=== PATIENT | female | born 1965 | race Caucasian/White ===

== ENCOUNTER 2016-11-13 20:10 | Emergency (ER) | payer OTHER ==
[~2016-11-13] VITALS: Ht 160 cm; Wt 91.2 kg
[~2016-11-13 20:10] MED LIST: ALBU17AE26 IH; AMLO10TA88 PO; LISI10TA5 PO
[2016-11-13 20:15] VITALS: BP_SYST 150
--- NOTE | 2016-11-13 20:20 | NUR ---
Placed in room 07 . Placed on teletypesetter monitor, blood pressure machine and pulse oximeter. To gown for exam. Side rails up. Report given to ROSA Alford.
--- NOTE | 2016-11-13 20:25 | NUR ---
Patient AAO x4, sitting in bed, c/o Right lower quadrant abd pain radiating to right flank x 1 day, states it's a " burning, constant pain" 7/10 with nausea. - Vomiting. Denies chest pain, denies shortness of breath, no acute distress noted. Patient afebrile. Will continue to monitor.
--- NOTE | 2016-11-13 20:28 | NUR ---
ER at bedside examining patient.
[2016-11-13 20:41] LABS: BILIRUBIN,URINE NEGATIVE (NEGATIVE); CLARITY/URINE CLEAR (CLEAR); COLOR,URINE YELLOW (YELLOW); GLUCOSE,URINE NEGATIVE (NEGATIVE); KETONES,URINE NEGATIVE (NEGATIVE); LEUKOCYTE ESTERASE ,URINE TRACE (NEGATIVE); NITRITE, URINE NEGATIVE (NEGATIVE); PH,URINE 7.5 (5.0-8.0); PROTEIN URINE NEGATIVE (NEGATIVE); UROBILINOGEN,URINE 0.2 (0.2-1.0)
[2016-11-13 20:48] LABS: BLOOD, URINE TRACE (NEGATIVE)
[2016-11-13 20:49] LABS: BACTERIA,URINE FEW /HPF (None Seen); MUCUS,URINE None Seen /LPF (None Seen); RBC,URINE 0-3 /HPF (0-3)
[2016-11-13 20:56] LABS: BASOPHILS # (AUTO) 0.1 K/uL (0.0-0.2); BASOPHILS % (AUTO) 0.9 % (0.0-2.0); EOSINOPHILS # (AUTO) 0.1 K/uL (0.0-0.4); EOSINOPHILS % (AUTO) 1.8 % (0.0-4.0); HEMATOCRIT 41.4 % (36-48); HEMOGLOBIN 13.9 g/dL (12.0-16.0); LYMPHOCYTES # (AUTO) 1.1 K/uL (1.0-5.5); LYMPHOCYTES % (AUTO) 14.8 % (20.5-51.5); MEAN CORPUSCULAR HEMOGLOBIN 28 pg (27-31); MEAN CORPUSCULAR HGB CONC 34 % (32-36); MEAN CORPUSCULAR VOLUME 85 fL (79.0-98.0); MONOCYTES # (AUTO) 0.4 K/uL (0.0-1.0); MONOCYTES % (AUTO) 4.7 % (1.7-9.3); NEUTROPHILS % (AUTO) 77.8 % (40.0-70.0); PLATELET COUNT (AUTO) 242 K/uL (130-430); RED BLOOD CELL COUNT(AUTO) 4.88 MIL/uL (4.2-6.2); RED CELL DISTRIBUTION WIDTH 14.2 % (9.0-15.0); WHITE BLOOD COUNT (AUTO) 7.7 K/uL (4.8-10.8)
[2016-11-13] MEDS ORDERED: KETOROLAC TROMETHAMINE 30 MG VIAL IVP ONE (21:00)
[2016-11-13 21:02] LABS: CALCIUM 9.1 mg/dL (8.4-11.0); CREATININE 0.79 mg/dL (0.55-1.30); POTASSIUM 3.9 mmol/L (3.5-5.1)
[2016-11-13 21:06] LABS: ALBUMIN 3.9 g/dL (3.4-4.8); TOTAL BILIRUBIN 0.3 mg/dL (0.0-1.0); TOTAL PROTEIN, SERUM 8.6 g/dL (6.4-8.3)
--- NOTE | 2016-11-13 21:28 | NUR ---
Patient reports pain 0/10 30 minutes after administration of Torodol IVP. No adverse reactions noted. Will continue to monitor.
[2016-11-13] MEDS ORDERED: IOHEXOL 100 ML IV ONE (21:58)
--- NOTE | 2016-11-13 22:30 | NUR ---
Patient resting quietly. No acute distress noted. Vital signs within normal range.
[2016-11-13 23:03] VITALS: BP_SYST 130
--- NOTE | 2016-11-13 23:03 | NUR ---
Patient given written and verbal discharge instructions and verbalizes understanding. ER MD discussed with patient the results and treatment provided. Patient in stable condition. ID arm band removed. IV catheter removed intact and dressing applied, no active bleeding. Rx of NORCO given. Patient educated on pain management and to follow up with PMD. Pain Scale 0/10. Opportunity for questions provided and answered.
== END 2016-11-13 23:03 | disposition home or self-care (01) ==
LOC: SED 20:10
DX: R10.9 Unspecified abdominal pain (principal); I10 Essential (primary) hypertension; J45.909 Unspecified asthma, uncomplicated; E11.9 Type 2 diabetes mellitus without complications; E03.9 Hypothyroidism, unspecified; D64.9 Anemia, unspecified; Z90.710 Acquired absence of both cervix and uterus
CPT/HCPCS: 36415; 74177; 80053; 81000; 81025; 83690; 85025; 96374; 99285; J1885; Q9967

== ENCOUNTER 2020-01-08 17:19 | Emergency (ER) | payer OTHER ==
[~2020-01-08] VITALS: Ht 165.1 cm; Wt 108.9 kg
[2020-01-08 17:19] VITALS: BP_SYST 151
--- NOTE | 2020-01-08 17:19 | NUR ---
Patient to ER bed 7 to gown for evaluation. Side rails up. Report given to ROSA Martínez.
--- NOTE | 2020-01-08 17:29 | NUR ---
PATIENT PRESENTED TO ER C/O ABDOMINAL PAIN.PATIENT AAOX4, AMBULATORY TO ER, AFEBRILE, SKIN PINK, DIAPHORETIC, PAIN 9/10, NAUSEA, DENIES V/D. PT REPORTS ABDOMINAL PAIN, HEAD ACHE, DIZZINESS, NAUSEA, SUBJECTIVE FEVER SINCE THIS MORNING. PT HAS A HISTORY OF HTN, DM, THYROID DZ, HYPERCHOLESTEROL, BOWEL SX 10/15/19 PT PLACED ON SECURITY OFFICERS AND GUARDS & PULSE-OX MONITOR. WILL CONTINUE MONITOR.
--- NOTE | 2020-01-08 17:37 | NUR ---
GILA MAGUIRE at bedside examining patient.
[2020-01-08] MEDS ORDERED: NACL 0.9% 1,000 ML IV ONE (17:45)
[2020-01-08] MEDS ORDERED: ONDANSETRON HCL 4 MG/2 ML VIAL IVP ONE (17:45)
[2020-01-08] MEDS ORDERED: MORPHINE 4 MG/ML INJ. SYRINGE IVP ONE ×2 (17:45→19:45)
--- NOTE | 2020-01-08 17:50 | NUR ---
# 22 gauge angiocath placed to Left hand. Use of asceptic technique. Opsite placed over site. Blood return noted. Blood for lab drawn from site. Flushed with 10 cc of normal saline. No evidence of infiltration noted. Patient tolerated well.
--- NOTE | 2020-01-08 17:55 | NUR ---
Medicated per MD orders. IVF infusing with no s/s of infiltration at this time. Will cont to monitor
--- NOTE | 2020-01-08 18:10 | NUR ---
PT TO RADIOLOGY WITH [facility] VIA WHEELCHAIR.
[2020-01-08 18:12] LABS: BASOPHILS # (AUTO) 0.1 K/uL (0.0-0.2); BASOPHILS % (AUTO) 0.6 % (0.0-2.0); EOSINOPHILS # (AUTO) 0.1 K/uL (0.0-0.4); EOSINOPHILS % (AUTO) 0.5 % (0.0-4.0); HEMATOCRIT 39.3 % (36-48); HEMOGLOBIN 13.1 g/dL (12.0-16.0); LYMPHOCYTES # (AUTO) 1.1 K/uL (1.0-5.5); LYMPHOCYTES % (AUTO) 10.7 % (20.5-51.5); MEAN CORPUSCULAR HEMOGLOBIN 27 pg (27-31); MEAN CORPUSCULAR HGB CONC 33 % (32-36); MEAN CORPUSCULAR VOLUME 82 fL (79.0-98.0); MONOCYTES # (AUTO) 0.6 K/uL (0.0-1.0); MONOCYTES % (AUTO) 5.6 % (1.7-9.3); NEUTROPHILS # (AUTO) 8.7 K/uL (1.8-7.7); NEUTROPHILS % (AUTO) 82.6 % (40.0-70.0); PLATELET COUNT (AUTO) 233 K/uL (130-430); RED BLOOD CELL COUNT(AUTO) 4.78 MIL/uL (4.2-6.2); RED CELL DISTRIBUTION WIDTH 16.3 % (9.0-15.0); WHITE BLOOD COUNT (AUTO) 10.5 K/uL (4.8-10.8)
--- NOTE | 2020-01-08 18:20 | NUR ---
PT TO ER BED 7 FROM RADIOLOGY.
[2020-01-08 18:21] LABS: INR 1.2 (0.8-1.2); PROTHROMBIN TIME 11.7 SECS (9.5-12.5)
--- NOTE | 2020-01-08 19:07 | NUR ---
REPORT TO KONRAD LEE
--- NOTE | 2020-01-08 19:15 | NUR ---
received report from ROSA mullen for continuation of care.
--- NOTE | 2020-01-08 19:16 | NUR ---
pt states pain is a 6 out of 10. md aware.
[2020-01-08 19:21] LABS: CALCIUM 8.8 mg/dL (8.4-11.0); CREATININE 0.77 mg/dL (0.55-1.30); POTASSIUM 4.2 mmol/L (3.5-5.1)
[2020-01-08 19:22] LABS: ALBUMIN 3.6 g/dL (3.4-4.8); TOTAL BILIRUBIN 0.4 mg/dL (0.0-1.0)
[2020-01-08 19:25] LABS: BILIRUBIN,URINE NEGATIVE (NEGATIVE); BLOOD, URINE NEGATIVE (NEGATIVE); CLARITY/URINE SL CLOUDY (CLEAR); COLOR,URINE YELLOW (YELLOW); GLUCOSE,URINE NEGATIVE (NEGATIVE); KETONES,URINE NEGATIVE (NEGATIVE); LEUKOCYTE ESTERASE ,URINE NEGATIVE (NEGATIVE); NITRITE, URINE NEGATIVE (NEGATIVE); PROTEIN URINE 2+ (NEGATIVE); UROBILINOGEN,URINE 0.2 (0.2-1.0)
--- NOTE | 2020-01-08 19:40 | NUR ---
Dr. Galvez at bedside discussing plan of care with patient.
[2020-01-08] MEDS ORDERED: CIPROFLOXACIN HCL 500 MG TABLET PO ONE (19:45)
[2020-01-08] MEDS ORDERED: metroNIDAZOLE 500 MG TABLET PO ONE (19:45)
--- NOTE | 2020-01-08 19:45 | NUR ---
lab at bedside.
--- NOTE | 2020-01-08 20:07 | NUR ---
pt medicated per md order. pt tolerated well.
[2020-01-08] MEDS ORDERED: metroNIDAZOLE 500 MG TABLET ONE (20:18)
[2020-01-08 20:26] VITALS: BP_SYST 159
--- NOTE | 2020-01-08 20:26 | NUR ---
Patient given written and verbal discharge instructions and verbalizes understanding. ER MD discussed with patient the results and treatment provided. Patient in stable condition. ID arm band removed. IV catheter removed intact and dressing applied, no active bleeding. Rx of FLAGYL, CIPRO, IBUPROFEN, TRAMADOL given. Patient educated on pain management and to follow up with PMD. Pain Scale 4/10. Opportunity for questions provided and answered. Medication side effect fact sheet provided.
== END 2020-01-08 20:26 | disposition home or self-care (01) ==
LOC: SED 17:19
DX: R10.84 Generalized abdominal pain (principal); I10 Essential (primary) hypertension; E11.9 Type 2 diabetes mellitus without complications; E03.9 Hypothyroidism, unspecified; J45.909 Unspecified asthma, uncomplicated; Z90.49 Acquired absence of other specified parts of digestive tract; Z90.710 Acquired absence of both cervix and uterus
CPT/HCPCS: 36415; 74176; 80053; 81003; 83605; 83690; 84484; 85025; 85610; 85730; 87040; 87086; 93005; 96361; 96374; 96375; 96376; 99285; J2270; J2405; J7030

== ENCOUNTER 2020-01-16 18:28 | Emergency (ER) | payer OTHER ==
[~2020-01-16] VITALS: Ht 160 cm; Wt 105.7 kg
[2020-01-16 18:54] VITALS: BP_SYST 201
[2020-01-16] MEDS ORDERED: ENALAPRILAT DIHYDRATE 1.25 MG/ML VIAL IVP ONE (19:15)
[2020-01-16] MEDS ORDERED: ASPIRIN 325 MG TABLET PO ONE (19:15)
[2020-01-16] MEDS ORDERED: hydrALAZINE HCL 20 MG/ML VIAL IVP ONE ×2 (19:15→20:30)
[2020-01-16 19:25] LABS: BASOPHILS % (AUTO) 0.6 % (0.0-2.0); EOSINOPHILS # (AUTO) 0.2 K/uL (0.0-0.4); EOSINOPHILS % (AUTO) 3.5 % (0.0-4.0); HEMATOCRIT 39.3 % (36-48); HEMOGLOBIN 12.9 g/dL (12.0-16.0); LYMPHOCYTES # (AUTO) 1.7 K/uL (1.0-5.5); LYMPHOCYTES % (AUTO) 27.5 % (20.5-51.5); MEAN CORPUSCULAR HEMOGLOBIN 27 pg (27-31); MEAN CORPUSCULAR HGB CONC 33 % (32-36); MEAN CORPUSCULAR VOLUME 82 fL (79.0-98.0); MONOCYTES # (AUTO) 0.5 K/uL (0.0-1.0); MONOCYTES % (AUTO) 8.7 % (1.7-9.3); NEUTROPHILS # (AUTO) 3.8 K/uL (1.8-7.7); NEUTROPHILS % (AUTO) 59.7 % (40.0-70.0); PLATELET COUNT (AUTO) 275 K/uL (130-430); RED CELL DISTRIBUTION WIDTH 15.9 % (9.0-15.0); WHITE BLOOD COUNT (AUTO) 6.3 K/uL (4.8-10.8)
[2020-01-16 19:52] LABS: CALCIUM 9.6 mg/dL (8.4-11.0); CREATININE 1.07 mg/dL (0.55-1.30); POTASSIUM 4.3 mmol/L (3.5-5.1)
[2020-01-16 19:58] LABS: ALBUMIN 3.6 g/dL (3.4-4.8); TOTAL BILIRUBIN 0.2 mg/dL (0.0-1.0)
[2020-01-16 20:00] LABS: PROTHROMBIN TIME 10.4 SECS (9.5-12.5)
[2020-01-16] MEDS ORDERED: NITROGLYCERIN 1 INCH (GM) OINT. TP ONE (20:30)
[2020-01-16 21:55] VITALS: BP_SYST 123
[2020-01-16] MEDS ORDERED: ONDANSETRON 4 MG ODT TAB PO ONE (22:00)
== END 2020-01-16 21:55 | disposition home or self-care (01) ==
LOC: SED 18:28
DX: I10 Essential (primary) hypertension (principal); J45.909 Unspecified asthma, uncomplicated; E11.9 Type 2 diabetes mellitus without complications; E03.9 Hypothyroidism, unspecified; Z86.2 Personal history of diseases of the blood and blood-forming organs and certain disorders involving the immune mechanism; Z90.710 Acquired absence of both cervix and uterus
CPT/HCPCS: 36415; 71045; 80053; 83880; 84484; 85025; 85610; 85379; 85730; 96374; 96375; 96376; 99291; J0360; Q0162; 99284

== ENCOUNTER 2020-01-17 19:28 | Emergency (ER) | payer OTHER ==
[~2020-01-17] VITALS: Ht 160 cm; Wt 105.7 kg
[2020-01-17 19:45] VITALS: BP_SYST 163
[2020-01-17] MEDS ORDERED: cloNIDine HCL 0.1 MG TABLET PO ONE ×2 (21:00→22:45)
[2020-01-17 21:26] LABS: BASOPHILS # (AUTO) 0.1 K/uL (0.0-0.2); BASOPHILS % (AUTO) 1.1 % (0.0-2.0); EOSINOPHILS # (AUTO) 0.1 K/uL (0.0-0.4); EOSINOPHILS % (AUTO) 1.5 % (0.0-4.0); HEMATOCRIT 38.3 % (36-48); HEMOGLOBIN 12.5 g/dL (12.0-16.0); MEAN CORPUSCULAR HEMOGLOBIN 27 pg (27-31); MEAN CORPUSCULAR HGB CONC 33 % (32-36); MEAN CORPUSCULAR VOLUME 82 fL (79.0-98.0); MONOCYTES # (AUTO) 0.7 K/uL (0.0-1.0); MONOCYTES % (AUTO) 8.6 % (1.7-9.3); NEUTROPHILS # (AUTO) 4.7 K/uL (1.8-7.7); NEUTROPHILS % (AUTO) 62.8 % (40.0-70.0); PLATELET COUNT (AUTO) 264 K/uL (130-430); RED BLOOD CELL COUNT(AUTO) 4.67 MIL/uL (4.2-6.2); RED CELL DISTRIBUTION WIDTH 16.1 % (9.0-15.0); WHITE BLOOD COUNT (AUTO) 7.5 K/uL (4.8-10.8)
[2020-01-17 21:43] LABS: CALCIUM 9.3 mg/dL (8.4-11.0); CREATININE 0.9 mg/dL (0.55-1.30); POTASSIUM 3.9 mmol/L (3.5-5.1)
[2020-01-17 21:48] LABS: ALBUMIN 3.5 g/dL (3.4-4.8); TOTAL BILIRUBIN 0.1 mg/dL (0.0-1.0)
[2020-01-17] MEDS ORDERED: amLODIPine BESYLATE 5 MG TABLET PO ONE (22:45)
[2020-01-17 23:55] VITALS: BP_SYST 178
== END 2020-01-17 23:55 | disposition home or self-care (01) ==
LOC: SED 19:28
DX: R07.89 Other chest pain (principal); J45.909 Unspecified asthma, uncomplicated; I10 Essential (primary) hypertension; E11.9 Type 2 diabetes mellitus without complications; E03.9 Hypothyroidism, unspecified; Z86.2 Personal history of diseases of the blood and blood-forming organs and certain disorders involving the immune mechanism; Z90.710 Acquired absence of both cervix and uterus
CPT/HCPCS: 36415; 80053; 84484; 85025; 93005; 99284

== ENCOUNTER 2020-08-12 15:56 | Emergency (ER) | payer OTHER ==
[~2020-08-12] VITALS: Ht 160 cm; Wt 104.3 kg
[~2020-08-12 15:56] MED LIST changes: +LISI10TA29 PO; -LISI10TA5 PO
[2020-08-12 16:51] VITALS: BP_SYST 162
[2020-08-12] MEDS ORDERED: HYDROmorphone 1 INJ. 1 MG/ML CARTRIDGE IM ONE (20:00)
[2020-08-12] MEDS ORDERED: MORPHINE SULFATE 10 MG/ML VIAL IM ONE (20:15)
[2020-08-12] MEDS ORDERED: HYDR-3921 PO (20:29)
[2020-08-12] MEDS ORDERED: IBUP-1969 PO (20:29)
[2020-08-12 20:40] VITALS: BP_SYST 166
== END 2020-08-12 20:40 | disposition home or self-care (01) ==
LOC: SED 15:56
DX: M70.71 Other bursitis of hip, right hip (principal); I10 Essential (primary) hypertension; E11.9 Type 2 diabetes mellitus without complications; E03.9 Hypothyroidism, unspecified; J45.909 Unspecified asthma, uncomplicated; Z79.899 Other long term (current) drug therapy; Y93.89 Activity, other specified
CPT/HCPCS: 72100; 96372; 99283; J2270; J1170

== ENCOUNTER 2021-07-05 16:23 | Emergency (ER) | payer OTHER ==
[~2021-07-05] VITALS: Ht 160 cm; Wt 99.8 kg
[~2021-07-05 16:23] MED LIST changes: +HYDR-3921 PO; +IBUP-1969 PO
[2021-07-05 16:28] VITALS: BP_SYST 142
[2021-07-05] MEDS ORDERED: HYDROcodone/ACETAMIN 5-325 MG TAB (NORCO/ VICODIN) PO ONE (17:45)
[2021-07-05] MEDS ORDERED: CEPH-548 PO (18:21)
[2021-07-05] MEDS ORDERED: HYDR-3917 PO (18:21)
[2021-07-05 18:35] VITALS: BP_SYST 132
== END 2021-07-05 18:40 | disposition home or self-care (01) ==
LOC: SED 16:23
DX: S83.91XA Sprain of unspecified site of right knee, initial encounter (principal); S93.501A Unspecified sprain of right great toe, initial encounter; I10 Essential (primary) hypertension; E03.9 Hypothyroidism, unspecified; E11.9 Type 2 diabetes mellitus without complications; J45.909 Unspecified asthma, uncomplicated; Z79.899 Other long term (current) drug therapy; W01.0XXA Fall on same level from slipping, tripping and stumbling without subsequent striking against object, initial encounter; Y93.89 Activity, other specified; Y92.89 Other specified places as the place of occurrence of the external cause; Y99.8 Other external cause status
CPT/HCPCS: 73560-TC; 81002; 99284

== ENCOUNTER 2021-11-12 08:12 | Emergency (ER) | payer OTHER ==
[~2021-11-12] VITALS: Ht 160 cm; Wt 99.8 kg
[2021-11-12 08:12] VITALS: BP_SYST 163
[~2021-11-12 08:12] MED LIST changes: +CEPH-548 PO; +HYDR-3917 PO
--- NOTE | 2021-11-12 08:20 | NUR ---
BROUGHT BACK TO BED #8 VIA WHEELCHAIR, TRIAGED AND REPORT GIVEN TO MARSHA
--- NOTE | 2021-11-12 08:30 | NUR ---
GILA Shipley at bedside examining patient.
--- NOTE | 2021-11-12 08:32 | NUR ---
Assumed care of pt who came from home c/o rt foot pain that she states was caused by accidentally dropping a table on it yesterday evening. VSS, pt appears in no acute distress, is calm and cooperative. Will continue to provide care as ordered.
[2021-11-12] MEDS ORDERED: TRAM50TA2 PO (08:45)
[2021-11-12] MEDS ORDERED: IBUPROFEN 600 MG TABLET PO ONE (08:45)
[2021-11-12] MEDS ORDERED: IBUP-1969 PO (08:48)
[2021-11-12 09:25] VITALS: BP_SYST 163
--- NOTE | 2021-11-12 09:27 | NUR ---
Patient given written and verbal discharge instructions and verbalizes understanding. ER MD discussed with patient the results and treatment provided. Patient in stable condition. ID arm band removed. Rxs of ibuprofen and tramadol given. Patient educated on pain management and to follow up with PMD. Pain Scale 5/10. Opportunity for questions provided and answered. Medication side effect fact sheet provided.
== END 2021-11-12 09:27 | disposition home or self-care (01) ==
LOC: SED 08:12
DX: S90.31XA Contusion of right foot, initial encounter (principal); J45.909 Unspecified asthma, uncomplicated; E11.9 Type 2 diabetes mellitus without complications; I10 Essential (primary) hypertension; Z79.899 Other long term (current) drug therapy; W20.8XXA Other cause of strike by thrown, projected or falling object, initial encounter; Y93.89 Activity, other specified; Y92.89 Other specified places as the place of occurrence of the external cause; Y99.8 Other external cause status
CPT/HCPCS: 99283

== ENCOUNTER 2022-09-01 16:17 | Emergency (ER) | payer OTHER ==
[~2022-09-01] VITALS: Ht 160 cm; Wt 83.9 kg
[~2022-09-01 16:17] MED LIST changes: +TRAM50TA2 PO
[2022-09-01 16:30] VITALS: BP_SYST 174
[2022-09-01 17:05] LABS: BASOPHILS # (AUTO) 0.1 K/uL (0.0-0.2); BASOPHILS % (AUTO) 0.9 % (0.0-2.0); EOSINOPHILS # (AUTO) 0.1 K/uL (0.0-0.4); EOSINOPHILS % (AUTO) 1.8 % (0.0-4.0); HEMATOCRIT 40.5 % (36-48); HEMOGLOBIN 13.3 g/dL (12.0-16.0); LYMPHOCYTES % (AUTO) 15.9 % (20.5-51.5); MEAN CORPUSCULAR HEMOGLOBIN 27 pg (27-31); MEAN CORPUSCULAR HGB CONC 33 % (32-36); MEAN CORPUSCULAR VOLUME 82 fL (79.0-98.0); MONOCYTES # (AUTO) 0.4 K/uL (0.0-1.0); MONOCYTES % (AUTO) 6.8 % (1.7-9.3); NEUTROPHILS # (AUTO) 4.7 K/uL (1.8-7.7); NEUTROPHILS % (AUTO) 74.6 % (40.0-70.0); PLATELET COUNT (AUTO) 242 K/uL (130-430); RED BLOOD CELL COUNT(AUTO) 4.91 MIL/uL (4.2-6.2); RED CELL DISTRIBUTION WIDTH 15.4 % (9.0-15.0); WHITE BLOOD COUNT (AUTO) 6.3 K/uL (4.8-10.8)
[2022-09-01 17:13] LABS: CLARITY/URINE CLEAR (CLEAR); COLOR,URINE YELLOW (YELLOW)
[2022-09-01 17:14] LABS: BILIRUBIN,URINE NEGATIVE (NEGATIVE); BLOOD, URINE NEGATIVE (NEGATIVE); GLUCOSE,URINE 3+ (NEGATIVE); KETONES,URINE NEGATIVE (NEGATIVE); LEUKOCYTE ESTERASE ,URINE NEGATIVE (NEGATIVE); NITRITE, URINE NEGATIVE (NEGATIVE); PROTEIN URINE NEGATIVE (NEGATIVE); UROBILINOGEN,URINE 0.2 (0.2-1.0)
[2022-09-01 17:18] LABS: ALBUMIN 4.2 g/dL (3.4-4.8); CALCIUM 10.1 mg/dL (8.4-11.0); CREATININE 0.8 mg/dL (0.55-1.30); TOTAL BILIRUBIN 0.4 mg/dL (0.0-1.0)
[2022-09-01] MEDS ORDERED: LIDOCAINE PATCH 5% 1 EA TP ONE (19:15)
[2022-09-01] MEDS ORDERED: KETOROLAC TROMETHAMINE 30 MG VIAL IM ONE ×2 (19:15)
[2022-09-01] MEDS ORDERED: ACET-2634 PO (20:52)
[2022-09-01 20:57] VITALS: BP_SYST 152
== END 2022-09-01 20:56 | disposition home or self-care (01) ==
LOC: SED 16:17
DX: R10.9 Unspecified abdominal pain (principal); R11.0 Nausea; J45.909 Unspecified asthma, uncomplicated; E11.9 Type 2 diabetes mellitus without complications; I10 Essential (primary) hypertension; Z79.899 Other long term (current) drug therapy
CPT/HCPCS: 99285; 74176; 80053; 83690; 85025; 36415; 76376; 96372; 81003; J1885

== ENCOUNTER 2022-12-06 21:52 | Emergency (ER) | payer OTHER ==
[~2022-12-06] VITALS: Ht 160 cm; Wt 83.5 kg
[~2022-12-06 21:52] MED LIST changes: +ACET-2634 PO
[2022-12-06 22:17] VITALS: BP_SYST 133; PULSE 83; RESP 18; TEMP 97.5; O2SAT 98
[2022-12-06] MEDS ORDERED: MORPHINE 4 MG INJ. 4 MG/ML VIAL IVP ONE (22:30)
[2022-12-06] MEDS ORDERED: ONDANSETRON HCL 4 MG/2 ML VIAL IVP ONE (22:30)
[2022-12-06] MEDS ORDERED: NACL 0.9% 1,000 ML IV ONE (22:30)
[2022-12-06 22:44] LABS: BASOPHILS % (AUTO) 0.4 % (0.0-2.0); EOSINOPHILS # (AUTO) 0.1 K/uL (0.0-0.4); EOSINOPHILS % (AUTO) 1.4 % (0.0-4.0); HEMATOCRIT 37.8 % (36-48); HEMOGLOBIN 12.3 g/dL (12.0-16.0); LYMPHOCYTES # (AUTO) 0.9 K/uL (1.0-5.5); LYMPHOCYTES % (AUTO) 15.6 % (20.5-51.5); MEAN CORPUSCULAR HEMOGLOBIN 26 pg (27-31); MEAN CORPUSCULAR HGB CONC 33 % (32-36); MEAN CORPUSCULAR VOLUME 80 fL (79.0-98.0); MONOCYTES # (AUTO) 0.5 K/uL (0.0-1.0); MONOCYTES % (AUTO) 7.4 % (1.7-9.3); NEUTROPHILS # (AUTO) 4.6 K/uL (1.8-7.7); NEUTROPHILS % (AUTO) 75.2 % (40.0-70.0); PLATELET COUNT (AUTO) 277 K/uL (130-430); RED BLOOD CELL COUNT(AUTO) 4.71 MIL/uL (4.2-6.2); RED CELL DISTRIBUTION WIDTH 16.8 % (9.0-15.0); WHITE BLOOD COUNT (AUTO) 6.1 K/uL (4.8-10.8)
[2022-12-06 22:58] LABS: CREATININE 1.13 mg/dL (0.55-1.30); POTASSIUM 3.9 mmol/L (3.5-5.1)
[2022-12-06 23:02] LABS: ALBUMIN 3.6 g/dL (3.4-4.8); TOTAL BILIRUBIN 0.5 mg/dL (0.0-1.0); TOTAL PROTEIN, SERUM 8.2 g/dL (6.4-8.3)
[2022-12-06 23:41] LABS: CLARITY/URINE CLEAR (CLEAR); COLOR,URINE YELLOW (YELLOW); PROTEIN URINE TRACE (NEGATIVE)
[2022-12-06 23:42] LABS: BILIRUBIN,URINE NEGATIVE (NEGATIVE); BLOOD, URINE NEGATIVE (NEGATIVE); GLUCOSE,URINE 3+ (NEGATIVE); KETONES,URINE NEGATIVE (NEGATIVE); LEUKOCYTE ESTERASE ,URINE NEGATIVE (NEGATIVE); NITRITE, URINE NEGATIVE (NEGATIVE)
[2022-12-06 23:46] LABS: BACTERIA,URINE RARE /HPF (None Seen)
[2022-12-07] MEDS ORDERED: MORPHINE 4 MG INJ. 4 MG/ML VIAL IVP ONE (02:00)
[2022-12-07] MEDS ORDERED: LEVO75TA7 PO (02:04)
[2022-12-07] MEDS ORDERED: SIMV-46 PO (02:04)
[2022-12-07] MEDS ORDERED: HYDR25TA4 PO (02:04)
[2022-12-07] MEDS ORDERED: SITA1TBM7 PO (02:04)
[2022-12-07] MEDS ORDERED: CELE-85 PO (02:04)
[2022-12-07] MEDS ORDERED: AMLO-61 PO (02:04)
[2022-12-07] MEDS ORDERED: FENO160 PO (02:04)
[2022-12-07] MEDS ORDERED: EMPA25TA PO (02:04)
[2022-12-07] MEDS ORDERED: CRAN200C PO (02:08)
[2022-12-07] MEDS ORDERED: CYAN250010 PO (02:08)
[2022-12-07] MEDS ORDERED: MULT1CAP34 PO (02:08)
[2022-12-07] MEDS ORDERED: LEVO75CA5 PO (02:08)
[2022-12-07] MEDS ORDERED: ASCO1TAB42 PO (02:08)
[2022-12-07] MEDS ORDERED: ERGO400C2 PO (02:08)
[2022-12-07] MEDS ORDERED: ACET-2634 PO (02:29)
[2022-12-07] MEDS ORDERED: IBUP-1969 PO (02:29)
[2022-12-07 03:51] VITALS: BP_SYST 112; PULSE 64; RESP 18; TEMP 97.5; O2SAT 98
== END 2022-12-07 02:45 | disposition home or self-care (01) ==
LOC: SED 21:52
DX: K82.4 Cholesterolosis of gallbladder (principal); K83.1 Obstruction of bile duct; R10.11 Right upper quadrant pain; J45.909 Unspecified asthma, uncomplicated; E11.9 Type 2 diabetes mellitus without complications; I10 Essential (primary) hypertension; Z79.899 Other long term (current) drug therapy
CPT/HCPCS: 99285; 96374; 76705; 96361; 96375; 80053; 81000; 83690; 85025; 87040; 36415; 83605; 96376; J2405; J2270 ×2; J7030